=== PATIENT | male | born 1955 | race African-American/Black ===

== ENCOUNTER 2018-11-18 04:58 | Inpatient (IN) | payer MEDICAID, OTHER ==
[~2018-11-18] VITALS: Ht 180.3 cm; Wt 65.8 kg
[~2018-11-18 04:58] MED LIST: CALC667C4 PO; CLON0.2T PO; HYDR-3927 PO; LEVO250T2 PO; NIFE90TA2 PO; P20 PO
[2018-11-18 05:37] LABS: HEMATOCRIT 30.5 % (42.0-52.0); HEMOGLOBIN 10.4 g/dL (14.0-18.0); MEAN CORPUSCULAR VOLUME 84.8 fL (80.0-94.0); PLATELET 146 x1000/uL (130-400); RED CELL DISTRIBUTION WIDTH 17.4 % (11.6-14.6)
[2018-11-18 05:45] LABS: CHLORIDE 103 mEq/L (98-107)
[2018-11-18] MEDS ORDERED: ONDANSETRON HCL 4MG/2ML INJ IV STA (06:17)
[2018-11-18] MEDS ORDERED: NITROGLYCERIN OINT 1GM/INCH UDPKT TD ONE (06:45)
[2018-11-18] MEDS ORDERED: ASPIRIN 81MG TABLET PO ONE (06:45)
[2018-11-18 08:00] VITALS: BP 170/89
[2018-11-18] MEDS ORDERED: NITROGLYCERIN 0.4MG TABLET SL SL PRN (08:30)
[2018-11-18] MEDS ORDERED: ONDANSETRON HCL 4MG/2ML INJ IV PRN (08:30)
[2018-11-18] MEDS ORDERED: GUAIFENESIN 200MG/10ML SUGAR FREE UDC PO PRN (08:30)
[2018-11-18] MEDS ORDERED: IPRATROPIUM/ALBUTEROL 0.5-3(2.5)MG/3ML NEB INH PRN (08:30)
[2018-11-18] MEDS ORDERED: LORAZEPAM 0.5MG TABLET PO PRN (08:30)
[2018-11-18] MEDS ORDERED: ENOXAPARIN 40MG/0.4ML SYR SUBCUT SCH (08:30)
[2018-11-18] MEDS ORDERED: DIPHENHYDRAMINE 50MG/ML VIAL IV PRN (08:30)
[2018-11-18] MEDS ORDERED: MAGNESIUM/ALUMINUM HYDROXIDE/SIMETHICONE 30ML UDC PO PRN (08:30)
[2018-11-18 09:21] VITALS: BP 170/89
[2018-11-18] MEDS ORDERED: AMLO2.5T45 MT (09:47)
[2018-11-18] MEDS: NIFEDIPINE XL 90MG TAB PO SCH (10:13)
[2018-11-18] MEDS: METOPROLOL TARTRATE 25MG TABLET PO SCH ×2 (10:13→21:24)
[2018-11-18] MEDS: FOLIC ACID/VITAMIN B COMP W-C TABLET PO SCH (10:13)
[2018-11-18] MEDS: FAMOTIDINE 20MG TABLET PO SCH (10:14)
[2018-11-18] MEDS: ASPIRIN 325MG EC TABLET PO SCH (10:14)
[2018-11-18] MEDS: ENOXAPARIN 30MG/0.3ML SYR SUBCUT SCH (10:15)
[2018-11-18 12:00] VITALS: BP 154/83
[2018-11-18] MEDS: HYDRALAZINE HCL 50MG TABLET PO SCH ×2 (13:41→22:09)
[2018-11-18] MEDS: SEVELAMER CARBONATE 800 MG TABLET PO SCH ×2 (13:50→17:42)
[2018-11-18] MEDS ORDERED: LABE300T3 MT (14:39)
[2018-11-18] MEDS ORDERED: TAMS-11 MT (14:39)
[2018-11-18] MEDS ORDERED: WARF7.5T48 MT (14:39)
[2018-11-18] MEDS ORDERED: ATOR20TA65 MT (14:39)
[2018-11-18 16:00] VITALS: BP 125/74
[2018-11-18 16:01] LABS: CREATINE KINASE MB FRACTION 2.4 ng/mL (0.5-3.6)
[2018-11-18 20:00] VITALS: BP 157/75
[2018-11-19] VITALS: BP 135/69
[2018-11-19 01:20] LABS: CREATINE KINASE MB FRACTION 2.2 ng/mL (0.5-3.6)
[2018-11-19 04:00] VITALS: BP 126/72
[2018-11-19] MEDS: HYDRALAZINE HCL 50MG TABLET PO SCH ×3 (06:33→22:00)
[2018-11-19 08:11] LABS: BASOPHILS % 0.6 % (0.0-2.0); EOSINOPHILS % 4.3 % (0.0-5.0); HEMATOCRIT. 28.5 % (42.0-52.0); HEMOGLOBIN. 9.8 g/dL (14.0-18.0); LYMPHOCYTES % 15.7 % (20.0-50.0); MEAN CORPUSCULAR HEMOGLOBIN 29.1 pg (28.0-32.0); MEAN CORPUSCULAR VOLUME 84.6 fL (80.0-94.0); MEAN PLATELET VOLUME 9.2 fl (7.4-10.4); MONOCYTES % 12.5 % (2.0-8.0); NEUTROPHILS % 66.9 % (40.0-76.0); PLATELET 153 x1000/uL (130-400); RED BLOOD CELL COUNT 3.37 mill/uL (4.7-6.1); RED CELL DISTRIBUTION WIDTH 17.2 % (11.6-14.6)
[2018-11-19 08:47] VITALS: BP 159/84
[2018-11-19] MEDS: FAMOTIDINE 20MG TABLET PO SCH (08:47)
[2018-11-19] MEDS: METOPROLOL TARTRATE 25MG TABLET PO SCH ×2 (08:47→22:01)
[2018-11-19] MEDS: SEVELAMER CARBONATE 800 MG TABLET PO SCH ×3 (08:47→17:50)
[2018-11-19] MEDS: ASPIRIN 325MG EC TABLET PO SCH (08:47)
[2018-11-19] MEDS: FOLIC ACID/VITAMIN B COMP W-C TABLET PO SCH (08:47)
[2018-11-19] MEDS: NIFEDIPINE XL 90MG TAB PO SCH (08:47)
[2018-11-19] MEDS: ENOXAPARIN 30MG/0.3ML SYR SUBCUT SCH (08:48)
[2018-11-19 09:10] LABS: PHOSPHORUS 3.6 mg/dL (2.5-4.9)
[2018-11-19 11:17] LABS: *AMPHETAMINES SCREEN URINE NEGATIVE (NEGATIVE); *BARBITURATES SCREEN URINE NEGATIVE (NEGATIVE)
[2018-11-19 11:18] LABS: *BENZODIAZEPINES SCREEN URINE NEGATIVE (NEGATIVE); *COCAINE SCREEN URINE NEGATIVE (NEGATIVE); CANNABINOID URINE SCREEN NEGATIVE (NEGATIVE); METHADONE URINE SCREEN NEGATIVE (NEGATIVE); OPIATES URINE SCREEN NEGATIVE (NEGATIVE); PHENCYCLIDINE URINE SCREEN NEGATIVE (NEGATIVE)
[2018-11-19 12:09] VITALS: BP 163/91
[2018-11-19 16:24] VITALS: BP 160/80
[2018-11-19] MEDS: ZOLPIDEM TARTRATE 5MG TABLET PO PRN (22:01)
[2018-11-19] MEDS ORDERED: FUROSEMIDE 100MG/10ML VIAL IVP SCH (23:45)
[2018-11-19] MEDS: CLONIDINE 0.1MG TABLET PO PRN (23:54)
[2018-11-20] VITALS (68 sets, daily range): BP systolic 121–199; BP diastolic 32–133
[2018-11-20 02:57] LABS: BG BASE EXCESS -5.5 mmol/L (-2.0-2.0); BG CARBOXYHEMOGLOBIN 0.1 % (0.5-1.5); BG DEOXYHEMOGLOBIN 0.8 % (0.0-5.0); BG FRACTION INSPIRED OXYGEN 100; BG HCO3 ACT 18.9 mmol/L (22.0-26.0); BG METHEMOGLOBIN 0.3 % (0.0-1.5); BG OXYGEN SATURATION 99.2 % (92.0-98.5); BG OXYHEMOGLOBIN 98.8 % (94.0-97.0); BG PH 7.375 (7.350-7.450); BG SAMPLE SITE LEFT RADIAL; BG TOTAL HEMOGLOBIN 11.6 g/dL (12.0-18.0); BG VENT MODE MASK - NRB
[2018-11-20] MEDS: HYDRALAZINE HCL 50MG TABLET PO SCH ×3 (06:00→22:05)
[2018-11-20] MEDS ORDERED: LORAZEPAM 2MG/ML CPJ IV PRN (06:26)
[2018-11-20] MEDS: SEVELAMER CARBONATE 800 MG TABLET PO SCH ×3 (07:00→17:30)
[2018-11-20] MEDS: NITROPRUSSIDE 50 MG in SODIUM CHLORIDE 0.9% 248 ML IV PRN ×3 (08:19→22:06)
[2018-11-20] MEDS: ENOXAPARIN 30MG/0.3ML SYR SUBCUT SCH (09:00)
[2018-11-20] MEDS: FOLIC ACID/VITAMIN B COMP W-C TABLET PO SCH (09:53)
[2018-11-20] MEDS: ASPIRIN 325MG EC TABLET PO SCH (09:53)
[2018-11-20] MEDS: FAMOTIDINE 20MG TABLET PO SCH (09:53)
[2018-11-20] MEDS: METOPROLOL TARTRATE 25MG TABLET PO SCH ×2 (09:55→21:59)
[2018-11-20 10:07] LABS: HEPATITIS B SURFACE AB 859.7 mIU/mL
[2018-11-20 10:16] LABS: HEPATITIS B SURFACE ANTIGEN NEGATIVE
[2018-11-20 11:29] LABS: HEPATITIS A AB IGM NEGATIVE (NEGATIVE)
[2018-11-20] MEDS: NIFEDIPINE XL 90MG TAB PO SCH (11:39)
[2018-11-21] VITALS (75 sets, daily range): BP systolic 63–180; BP diastolic 53–103
[2018-11-21 05:47] LABS: BASOPHILS % 0.9 % (0.0-2.0); EOSINOPHILS % 2.8 % (0.0-5.0); HEMATOCRIT. 29.8 % (42.0-52.0); HEMOGLOBIN. 10.2 g/dL (14.0-18.0); LYMPHOCYTES % 9.3 % (20.0-50.0); MEAN CORPUSCULAR HEMOGLOBIN 29.2 pg (28.0-32.0); MEAN CORPUSCULAR VOLUME 85.6 fL (80.0-94.0); MEAN PLATELET VOLUME 9.4 fl (7.4-10.4); PLATELET 152 x1000/uL (130-400); RED BLOOD CELL COUNT 3.48 mill/uL (4.7-6.1)
[2018-11-21] MEDS: HYDRALAZINE HCL 50MG TABLET PO SCH ×3 (06:44→22:07)
[2018-11-21] MEDS: SEVELAMER CARBONATE 800 MG TABLET PO SCH ×3 (07:45→17:59)
[2018-11-21] MEDS: CLONIDINE 0.1MG TABLET PO PRN (07:45)
[2018-11-21] MEDS: FOLIC ACID/VITAMIN B COMP W-C TABLET PO SCH (08:29)
[2018-11-21] MEDS: NIFEDIPINE XL 90MG TAB PO SCH (08:29)
[2018-11-21] MEDS: ENOXAPARIN 30MG/0.3ML SYR SUBCUT SCH (08:30)
[2018-11-21] MEDS: METOPROLOL TARTRATE 25MG TABLET PO SCH ×2 (08:30→20:41)
[2018-11-21] MEDS: ASPIRIN 325MG EC TABLET PO SCH (08:30)
[2018-11-21] MEDS: FAMOTIDINE 20MG TABLET PO SCH (08:30)
[2018-11-21] MEDS: MINOXIDIL 2.5MG TABLET PO SCH ×2 (11:39→20:41)
[2018-11-21] MEDS ORDERED: MINOXIDIL 2.5MG TABLET PO SCH (21:00)
[2018-11-22] VITALS: BP 133/71
[2018-11-22 05:07] VITALS: BP 134/70
[2018-11-22] MEDS: HYDRALAZINE HCL 50MG TABLET PO SCH ×3 (05:08→22:00)
[2018-11-22 06:34] LABS: BASOPHILS % 1.2 % (0.0-2.0); EOSINOPHILS % 3.3 % (0.0-5.0); HEMATOCRIT. 31.3 % (42.0-52.0); HEMOGLOBIN. 10.6 g/dL (14.0-18.0); LYMPHOCYTES % 11.4 % (20.0-50.0); MEAN CORPUSCULAR HEMOGLOBIN 28.8 pg (28.0-32.0); MEAN CORPUSCULAR VOLUME 84.8 fL (80.0-94.0); MEAN PLATELET VOLUME 9.5 fl (7.4-10.4); MONOCYTES % 11.7 % (2.0-8.0); NEUTROPHILS % 72.4 % (40.0-76.0); PLATELET 150 x1000/uL (130-400); RED BLOOD CELL COUNT 3.69 mill/uL (4.7-6.1); RED CELL DISTRIBUTION WIDTH 16.8 % (11.6-14.6)
[2018-11-22 08:00] VITALS: BP 160/97
[2018-11-22] MEDS: SEVELAMER CARBONATE 800 MG TABLET PO SCH ×3 (09:13→19:03)
[2018-11-22] MEDS: ASPIRIN 325MG EC TABLET PO SCH (09:13)
[2018-11-22] MEDS: ENOXAPARIN 30MG/0.3ML SYR SUBCUT SCH (09:13)
[2018-11-22] MEDS: METOPROLOL TARTRATE 25MG TABLET PO SCH ×2 (09:13→20:25)
[2018-11-22] MEDS: MINOXIDIL 2.5MG TABLET PO SCH ×2 (09:13→20:24)
[2018-11-22] MEDS: NIFEDIPINE XL 90MG TAB PO SCH (09:13)
[2018-11-22] MEDS: FOLIC ACID/VITAMIN B COMP W-C TABLET PO SCH (09:13)
[2018-11-22] MEDS: FAMOTIDINE 20MG TABLET PO SCH (09:13)
[2018-11-22 12:00] VITALS: BP 142/77
[2018-11-22 16:00] VITALS: BP 153/78
[2018-11-22 20:00] VITALS: BP 134/79
[2018-11-23] VITALS: BP 129/80
[2018-11-23] MEDS: ZOLPIDEM TARTRATE 5MG TABLET PO PRN (02:41)
[2018-11-23 04:00] VITALS: BP 159/88
[2018-11-23] MEDS: HYDRALAZINE HCL 50MG TABLET PO SCH ×3 (05:22→21:53)
[2018-11-23 08:00] VITALS: BP 144/88
[2018-11-23] MEDS: FOLIC ACID/VITAMIN B COMP W-C TABLET PO SCH (08:33)
[2018-11-23] MEDS: FAMOTIDINE 20MG TABLET PO SCH (08:34)
[2018-11-23] MEDS: METOPROLOL TARTRATE 25MG TABLET PO SCH ×2 (08:34→21:53)
[2018-11-23] MEDS: ASPIRIN 325MG EC TABLET PO SCH (08:35)
[2018-11-23] MEDS: MINOXIDIL 2.5MG TABLET PO SCH ×2 (08:35→21:53)
[2018-11-23] MEDS: NIFEDIPINE XL 90MG TAB PO SCH (08:35)
[2018-11-23] MEDS: ENOXAPARIN 30MG/0.3ML SYR SUBCUT SCH (08:36)
[2018-11-23] MEDS: SEVELAMER CARBONATE 800 MG TABLET PO SCH ×3 (08:51→17:40)
[2018-11-23 12:00] VITALS: BP 145/84
[2018-11-23 16:00] VITALS: BP 145/84
[2018-11-23 20:00] VITALS: BP 133/77
[2018-11-24] VITALS: BP 152/99
[2018-11-24 04:00] VITALS: BP 165/85
[2018-11-24] MEDS: HYDRALAZINE HCL 50MG TABLET PO SCH ×3 (05:56→21:15)
[2018-11-24 06:59] LABS: HEMATOCRIT. 29.4 % (42.0-52.0); HEMOGLOBIN. 9.9 g/dL (14.0-18.0); MEAN CORPUSCULAR HEMOGLOBIN 28.4 pg (28.0-32.0); MEAN CORPUSCULAR VOLUME 84.5 fL (80.0-94.0); MEAN PLATELET VOLUME 9.1 fl (7.4-10.4); PLATELET 157 x1000/uL (130-400); RED BLOOD CELL COUNT 3.48 mill/uL (4.7-6.1); RED CELL DISTRIBUTION WIDTH 16.5 % (11.6-14.6)
[2018-11-24 08:00] VITALS: BP 189/101
[2018-11-24] MEDS: FOLIC ACID/VITAMIN B COMP W-C TABLET PO SCH (09:18)
[2018-11-24] MEDS: ASPIRIN 325MG EC TABLET PO SCH (09:18)
[2018-11-24] MEDS: FAMOTIDINE 20MG TABLET PO SCH (09:19)
[2018-11-24] MEDS: METOPROLOL TARTRATE 25MG TABLET PO SCH ×2 (09:19→21:15)
[2018-11-24] MEDS: NIFEDIPINE XL 90MG TAB PO SCH (09:19)
[2018-11-24] MEDS: ENOXAPARIN 30MG/0.3ML SYR SUBCUT SCH (09:19)
[2018-11-24] MEDS: SEVELAMER CARBONATE 800 MG TABLET PO SCH ×3 (09:19→17:34)
[2018-11-24] MEDS: MINOXIDIL 2.5MG TABLET PO SCH ×2 (09:20→21:15)
[2018-11-24 12:00] VITALS: BP 163/89
[2018-11-24 16:00] VITALS: BP 131/78
[2018-11-24 16:49] LABS: PLATELET ESTIMATE NORMAL
[2018-11-24 20:00] VITALS: BP 158/90
[2018-11-24] MEDS ORDERED: MULT1TAB63 MT (20:26)
[2018-11-24] MEDS ORDERED: CHOL100044 MT (20:26)
[2018-11-25] VITALS: BP 141/74
[2018-11-25 04:00] VITALS: BP 162/95
[2018-11-25] MEDS: HYDRALAZINE HCL 50MG TABLET PO SCH ×3 (06:09→22:00)
[2018-11-25 08:00] VITALS: BP 122/79
[2018-11-25] MEDS: METOPROLOL TARTRATE 25MG TABLET PO SCH ×2 (09:01→20:55)
[2018-11-25] MEDS: ASPIRIN 325MG EC TABLET PO SCH (09:01)
[2018-11-25] MEDS: FOLIC ACID/VITAMIN B COMP W-C TABLET PO SCH (09:01)
[2018-11-25] MEDS: FAMOTIDINE 20MG TABLET PO SCH (09:01)
[2018-11-25] MEDS: SEVELAMER CARBONATE 800 MG TABLET PO SCH ×3 (09:01→17:40)
[2018-11-25] MEDS: NIFEDIPINE XL 90MG TAB PO SCH (09:01)
[2018-11-25] MEDS: MINOXIDIL 2.5MG TABLET PO SCH ×2 (09:02→20:54)
[2018-11-25] MEDS: ENOXAPARIN 30MG/0.3ML SYR SUBCUT SCH (09:02)
[2018-11-25 12:00] VITALS: BP 139/88
[2018-11-25 16:00] VITALS: BP 122/72
[2018-11-25 20:00] VITALS: BP 120/63
[2018-11-26] VITALS: BP 133/70
[2018-11-26 04:00] VITALS: BP 136/78
[2018-11-26] MEDS: HYDRALAZINE HCL 50MG TABLET PO SCH ×3 (05:30→21:29)
[2018-11-26 08:00] VITALS: BP 130/73
[2018-11-26] MEDS: FOLIC ACID/VITAMIN B COMP W-C TABLET PO SCH (08:39)
[2018-11-26] MEDS: FAMOTIDINE 20MG TABLET PO SCH (08:40)
[2018-11-26] MEDS: ASPIRIN 325MG EC TABLET PO SCH (08:40)
[2018-11-26] MEDS: SEVELAMER CARBONATE 800 MG TABLET PO SCH ×3 (08:41→17:04)
[2018-11-26] MEDS: METOPROLOL TARTRATE 25MG TABLET PO SCH ×2 (08:41→21:29)
[2018-11-26] MEDS: MINOXIDIL 2.5MG TABLET PO SCH ×2 (08:41→21:29)
[2018-11-26] MEDS: NIFEDIPINE XL 90MG TAB PO SCH (08:41)
[2018-11-26] MEDS: ENOXAPARIN 30MG/0.3ML SYR SUBCUT SCH (08:42)
[2018-11-26 12:00] VITALS: BP 124/68
[2018-11-26 16:00] VITALS: BP 142/76
[2018-11-26 20:00] VITALS: BP 160/89
[2018-11-27] VITALS: BP 158/85
[2018-11-27 04:00] VITALS: BP 124/60
[2018-11-27] MEDS: HYDRALAZINE HCL 50MG TABLET PO SCH ×3 (06:36→21:55)
[2018-11-27 08:00] VITALS: BP 120/80
[2018-11-27 08:15] LABS: HEMATOCRIT. 30.9 % (42.0-52.0); HEMOGLOBIN. 10.5 g/dL (14.0-18.0); MEAN CORPUSCULAR HEMOGLOBIN 28.5 pg (28.0-32.0); MEAN PLATELET VOLUME 9.4 fl (7.4-10.4); PLATELET 183 x1000/uL (130-400); RED BLOOD CELL COUNT 3.68 mill/uL (4.7-6.1); RED CELL DISTRIBUTION WIDTH 16.3 % (11.6-14.6)
[2018-11-27] MEDS: SEVELAMER CARBONATE 800 MG TABLET PO SCH ×3 (08:41→17:54)
[2018-11-27] MEDS: ASPIRIN 325MG EC TABLET PO SCH (08:41)
[2018-11-27] MEDS: METOPROLOL TARTRATE 25MG TABLET PO SCH ×2 (08:42→21:56)
[2018-11-27] MEDS: NIFEDIPINE XL 90MG TAB PO SCH (08:42)
[2018-11-27] MEDS: MINOXIDIL 2.5MG TABLET PO SCH ×2 (08:42→21:55)
[2018-11-27] MEDS: FOLIC ACID/VITAMIN B COMP W-C TABLET PO SCH (08:42)
[2018-11-27] MEDS: FAMOTIDINE 20MG TABLET PO SCH (08:43)
[2018-11-27] MEDS: ENOXAPARIN 30MG/0.3ML SYR SUBCUT SCH (08:51)
[2018-11-27 11:15] LABS: CHLORIDE 104 mEq/L (98-107)
[2018-11-27 12:00] VITALS: BP 116/68
[2018-11-27 12:43] LABS: PLATELET ESTIMATE NORMAL
[2018-11-27 16:00] VITALS: BP 114/78
[2018-11-27 20:00] VITALS: BP 141/84
[2018-11-28] VITALS: BP 118/67
[2018-11-28 04:00] VITALS: BP 135/67
[2018-11-28] MEDS: HYDRALAZINE HCL 50MG TABLET PO SCH ×2 (06:18→15:48)
[2018-11-28 07:49] LABS: HEMATOCRIT. 28.5 % (42.0-52.0); HEMOGLOBIN. 9.8 g/dL (14.0-18.0); MEAN CORPUSCULAR HEMOGLOBIN 28.8 pg (28.0-32.0); MEAN CORPUSCULAR VOLUME 83.7 fL (80.0-94.0); MEAN PLATELET VOLUME 9.2 fl (7.4-10.4); PLATELET 189 x1000/uL (130-400); RED BLOOD CELL COUNT 3.41 mill/uL (4.7-6.1); RED CELL DISTRIBUTION WIDTH 15.7 % (11.6-14.6)
[2018-11-28 08:00] VITALS: BP 125/65
[2018-11-28 09:01] LABS: PLATELET ESTIMATE NORMAL
[2018-11-28] MEDS: ENOXAPARIN 30MG/0.3ML SYR SUBCUT SCH (09:08)
[2018-11-28] MEDS: ASPIRIN 325MG EC TABLET PO SCH (09:08)
[2018-11-28] MEDS: FOLIC ACID/VITAMIN B COMP W-C TABLET PO SCH (09:08)
[2018-11-28] MEDS: FAMOTIDINE 20MG TABLET PO SCH (09:08)
[2018-11-28] MEDS: METOPROLOL TARTRATE 25MG TABLET PO SCH ×2 (09:08→21:14)
[2018-11-28] MEDS: SEVELAMER CARBONATE 800 MG TABLET PO SCH ×3 (09:08→17:29)
[2018-11-28] MEDS: MINOXIDIL 2.5MG TABLET PO SCH ×2 (09:08→21:14)
[2018-11-28] MEDS: NIFEDIPINE XL 90MG TAB PO SCH (09:15)
[2018-11-28 12:00] VITALS: BP 147/83
[2018-11-28 16:00] VITALS: BP 121/69
[2018-11-28 20:00] VITALS: BP 114/64
[2018-11-29] VITALS (7 sets, daily range): BP systolic 106–149; BP diastolic 65–87
[2018-11-29] MEDS: HYDRALAZINE HCL 50MG TABLET PO SCH ×4 (00:35→21:04)
[2018-11-29 09:45] LABS: BASOPHILS % 0.6 % (0.0-2.0); EOSINOPHILS % 2.7 % (0.0-5.0); HEMATOCRIT. 31.5 % (42.0-52.0); HEMOGLOBIN. 10.8 g/dL (14.0-18.0); LYMPHOCYTES % 11.7 % (20.0-50.0); MEAN CORPUSCULAR VOLUME 84.3 fL (80.0-94.0); MONOCYTES % 8.9 % (2.0-8.0); NEUTROPHILS % 76.1 % (40.0-76.0); PLATELET 229 x1000/uL (130-400); RED BLOOD CELL COUNT 3.74 mill/uL (4.7-6.1)
[2018-11-29] MEDS: METOPROLOL TARTRATE 25MG TABLET PO SCH ×2 (10:43→21:05)
[2018-11-29] MEDS: FOLIC ACID/VITAMIN B COMP W-C TABLET PO SCH (10:43)
[2018-11-29] MEDS: MINOXIDIL 2.5MG TABLET PO SCH ×2 (10:43→21:04)
[2018-11-29] MEDS: ASPIRIN 325MG EC TABLET PO SCH (10:43)
[2018-11-29] MEDS: NIFEDIPINE XL 90MG TAB PO SCH (10:43)
[2018-11-29] MEDS: SEVELAMER CARBONATE 800 MG TABLET PO SCH ×3 (10:43→18:10)
[2018-11-29] MEDS: FAMOTIDINE 20MG TABLET PO SCH (10:44)
[2018-11-29] MEDS: ENOXAPARIN 30MG/0.3ML SYR SUBCUT SCH (10:44)
[2018-11-30] VITALS: BP 113/68
[2018-11-30 04:00] VITALS: BP 113/58
[2018-11-30] MEDS: HYDRALAZINE HCL 50MG TABLET PO SCH ×3 (06:21→14:00)
[2018-11-30 08:00] VITALS: BP 128/68
[2018-11-30] MEDS: FAMOTIDINE 20MG TABLET PO SCH (09:22)
[2018-11-30] MEDS: METOPROLOL TARTRATE 25MG TABLET PO SCH ×2 (09:22→23:32)
[2018-11-30] MEDS: MINOXIDIL 2.5MG TABLET PO SCH ×2 (09:23→23:32)
[2018-11-30] MEDS: SEVELAMER CARBONATE 800 MG TABLET PO SCH ×3 (09:23→17:43)
[2018-11-30] MEDS: FOLIC ACID/VITAMIN B COMP W-C TABLET PO SCH (09:23)
[2018-11-30] MEDS: NIFEDIPINE XL 90MG TAB PO SCH (09:24)
[2018-11-30] MEDS: ASPIRIN 325MG EC TABLET PO SCH (09:24)
[2018-11-30] MEDS: ENOXAPARIN 30MG/0.3ML SYR SUBCUT SCH (09:27)
[2018-11-30 09:33] LABS: BASOPHILS % 0.8 % (0.0-2.0); HEMATOCRIT. 29.4 % (42.0-52.0); HEMOGLOBIN. 10.2 g/dL (14.0-18.0); LYMPHOCYTES % 25.5 % (20.0-50.0); MEAN CORPUSCULAR HEMOGLOBIN 29.1 pg (28.0-32.0); MEAN CORPUSCULAR VOLUME 83.5 fL (80.0-94.0); MEAN PLATELET VOLUME 9.2 fl (7.4-10.4); MONOCYTES % 13.4 % (2.0-8.0); NEUTROPHILS % 55.3 % (40.0-76.0); PLATELET 234 x1000/uL (130-400); RED BLOOD CELL COUNT 3.53 mill/uL (4.7-6.1); RED CELL DISTRIBUTION WIDTH 15.6 % (11.6-14.6)
[2018-11-30 12:00] VITALS: BP 101/56
[2018-11-30 16:00] VITALS: BP 116/66
[2018-11-30 20:00] VITALS: BP 117/69
[2018-12-01 04:00] VITALS: BP 113/63
[2018-12-01 07:03] LABS: BASOPHILS % 1.1 % (0.0-2.0); EOSINOPHILS % 4.8 % (0.0-5.0); HEMATOCRIT. 26.9 % (42.0-52.0); HEMOGLOBIN. 9.5 g/dL (14.0-18.0); LYMPHOCYTES % 21.8 % (20.0-50.0); MEAN CORPUSCULAR HEMOGLOBIN 29.7 pg (28.0-32.0); MEAN CORPUSCULAR VOLUME 84.2 fL (80.0-94.0); MEAN PLATELET VOLUME 8.9 fl (7.4-10.4); MONOCYTES % 14.3 % (2.0-8.0); PLATELET 218 x1000/uL (130-400); RED CELL DISTRIBUTION WIDTH 15.7 % (11.6-14.6)
[2018-12-01 08:00] VITALS: BP 121/73
[2018-12-01] MEDS: SEVELAMER CARBONATE 800 MG TABLET PO SCH ×3 (09:31→18:05)
[2018-12-01] MEDS: FOLIC ACID/VITAMIN B COMP W-C TABLET PO SCH (09:31)
[2018-12-01] MEDS: FAMOTIDINE 20MG TABLET PO SCH (09:31)
[2018-12-01] MEDS: MINOXIDIL 2.5MG TABLET PO SCH ×2 (09:34→21:22)
[2018-12-01] MEDS: NIFEDIPINE XL 90MG TAB PO SCH (09:36)
[2018-12-01] MEDS: ASPIRIN 325MG EC TABLET PO SCH (09:36)
[2018-12-01] MEDS: METOPROLOL TARTRATE 25MG TABLET PO SCH ×2 (09:37→21:21)
[2018-12-01] MEDS: ENOXAPARIN 30MG/0.3ML SYR SUBCUT SCH (09:37)
[2018-12-01 12:00] VITALS: BP 127/78
[2018-12-01 16:00] VITALS: BP 129/80
[2018-12-01 20:00] VITALS: BP 142/78
[2018-12-01] MEDS: HYDRALAZINE HCL 50MG TABLET PO SCH ×2 (23:38→23:39)
[2018-12-02] VITALS: BP 14/75
[2018-12-02] MEDS: HYDRALAZINE HCL 50MG TABLET PO SCH ×3 (05:27→21:41)
[2018-12-02 07:54] LABS: HEMATOCRIT. 28.9 % (42.0-52.0); HEMOGLOBIN. 10.1 g/dL (14.0-18.0); MEAN CORPUSCULAR VOLUME 85.6 fL (80.0-94.0); MEAN PLATELET VOLUME 9.8 fl (7.4-10.4); PLATELET 223 x1000/uL (130-400); RED BLOOD CELL COUNT 3.37 mill/uL (4.7-6.1); RED CELL DISTRIBUTION WIDTH 15.7 % (11.6-14.6)
[2018-12-02 08:00] VITALS: BP 125/74
[2018-12-02] MEDS: FAMOTIDINE 20MG TABLET PO SCH (08:40)
[2018-12-02] MEDS: ENOXAPARIN 30MG/0.3ML SYR SUBCUT SCH (08:40)
[2018-12-02] MEDS: FOLIC ACID/VITAMIN B COMP W-C TABLET PO SCH (08:41)
[2018-12-02] MEDS: NIFEDIPINE XL 90MG TAB PO SCH (08:41)
[2018-12-02] MEDS: MINOXIDIL 2.5MG TABLET PO SCH ×2 (08:41→21:42)
[2018-12-02] MEDS: ASPIRIN 325MG EC TABLET PO SCH (08:41)
[2018-12-02] MEDS: METOPROLOL TARTRATE 25MG TABLET PO SCH ×2 (08:41→21:42)
[2018-12-02] MEDS: SEVELAMER CARBONATE 800 MG TABLET PO SCH ×3 (08:45→17:09)
[2018-12-02 12:00] VITALS: BP 127/76
[2018-12-02 14:16] LABS: PLATELET ESTIMATE NORMAL
[2018-12-02 17:18] VITALS: BP 124/81
[2018-12-02 20:00] VITALS: BP 133/78
[2018-12-03] VITALS: BP 131/79
[2018-12-03 04:00] VITALS: BP 137/70
[2018-12-03] MEDS: HYDRALAZINE HCL 50MG TABLET PO SCH ×3 (06:09→22:15)
[2018-12-03 08:20] VITALS: BP 122/70
[2018-12-03] MEDS: MINOXIDIL 2.5MG TABLET PO SCH ×2 (08:54→20:32)
[2018-12-03] MEDS: NIFEDIPINE XL 90MG TAB PO SCH (08:54)
[2018-12-03] MEDS: FAMOTIDINE 20MG TABLET PO SCH (08:54)
[2018-12-03] MEDS: ASPIRIN 325MG EC TABLET PO SCH (08:54)
[2018-12-03] MEDS: SEVELAMER CARBONATE 800 MG TABLET PO SCH ×3 (08:54→18:03)
[2018-12-03] MEDS: METOPROLOL TARTRATE 25MG TABLET PO SCH ×2 (08:54→20:32)
[2018-12-03] MEDS: FOLIC ACID/VITAMIN B COMP W-C TABLET PO SCH (08:54)
[2018-12-03] MEDS: ENOXAPARIN 30MG/0.3ML SYR SUBCUT SCH (08:55)
[2018-12-03 11:46] LABS: BASOPHILS % 1.5 % (0.0-2.0); EOSINOPHILS % 6.5 % (0.0-5.0); HEMATOCRIT. 26.6 % (42.0-52.0); HEMOGLOBIN. 9.3 g/dL (14.0-18.0); LYMPHOCYTES % 21.7 % (20.0-50.0); MEAN CORPUSCULAR HEMOGLOBIN 29.4 pg (28.0-32.0); MEAN CORPUSCULAR VOLUME 83.9 fL (80.0-94.0); MEAN PLATELET VOLUME 8.8 fl (7.4-10.4); MONOCYTES % 10.9 % (2.0-8.0); NEUTROPHILS % 59.4 % (40.0-76.0); PLATELET 230 x1000/uL (130-400); RED BLOOD CELL COUNT 3.17 mill/uL (4.7-6.1); RED CELL DISTRIBUTION WIDTH 14.9 % (11.6-14.6)
[2018-12-03 12:28] VITALS: BP 115/63
[2018-12-03 16:53] VITALS: BP 125/70
[2018-12-03 20:27] VITALS: BP 129/74
[2018-12-04 00:38] VITALS: BP 134/74
[2018-12-04 04:00] VITALS: BP 128/76
[2018-12-04] MEDS: HYDRALAZINE HCL 50MG TABLET PO SCH ×3 (05:18→21:57)
[2018-12-04 08:00] VITALS: BP 130/76
[2018-12-04] MEDS: NIFEDIPINE XL 90MG TAB PO SCH (08:54)
[2018-12-04] MEDS: ASPIRIN 325MG EC TABLET PO SCH (08:54)
[2018-12-04] MEDS: FAMOTIDINE 20MG TABLET PO SCH (08:54)
[2018-12-04] MEDS: MINOXIDIL 2.5MG TABLET PO SCH ×2 (08:54→20:56)
[2018-12-04] MEDS: FOLIC ACID/VITAMIN B COMP W-C TABLET PO SCH (08:54)
[2018-12-04] MEDS: METOPROLOL TARTRATE 25MG TABLET PO SCH ×2 (08:55→20:56)
[2018-12-04] MEDS: ENOXAPARIN 30MG/0.3ML SYR SUBCUT SCH (08:55)
[2018-12-04] MEDS: SEVELAMER CARBONATE 800 MG TABLET PO SCH ×3 (08:59→18:42)
[2018-12-04 20:13] VITALS: BP 144/90
[2018-12-05 00:28] VITALS: BP 126/72
[2018-12-05 04:42] VITALS: BP 137/80
[2018-12-05] MEDS: HYDRALAZINE HCL 50MG TABLET PO SCH ×3 (05:16→20:52)
[2018-12-05 08:00] VITALS: BP 120/64
[2018-12-05] MEDS: FAMOTIDINE 20MG TABLET PO SCH (08:29)
[2018-12-05] MEDS: SEVELAMER CARBONATE 800 MG TABLET PO SCH ×3 (08:29→18:03)
[2018-12-05] MEDS: ASPIRIN 325MG EC TABLET PO SCH (08:29)
[2018-12-05] MEDS: FOLIC ACID/VITAMIN B COMP W-C TABLET PO SCH (08:29)
[2018-12-05] MEDS: ENOXAPARIN 30MG/0.3ML SYR SUBCUT SCH (08:30)
[2018-12-05 08:37] LABS: BASOPHILS % 1.8 % (0.0-2.0); EOSINOPHILS % 7.4 % (0.0-5.0); HEMOGLOBIN. 9.4 g/dL (14.0-18.0); MEAN CORPUSCULAR HEMOGLOBIN 29.3 pg (28.0-32.0); MEAN CORPUSCULAR VOLUME 84.7 fL (80.0-94.0); MONOCYTES % 10.6 % (2.0-8.0); NEUTROPHILS % 58.2 % (40.0-76.0); PLATELET 228 x1000/uL (130-400); RED BLOOD CELL COUNT 3.19 mill/uL (4.7-6.1); RED CELL DISTRIBUTION WIDTH 14.7 % (11.6-14.6)
[2018-12-05] MEDS: NIFEDIPINE XL 90MG TAB PO SCH (09:00)
[2018-12-05] MEDS: MINOXIDIL 2.5MG TABLET PO SCH ×2 (09:00→20:52)
[2018-12-05] MEDS: METOPROLOL TARTRATE 25MG TABLET PO SCH ×2 (09:00→20:52)
[2018-12-05 12:00] VITALS: BP 112/58
[2018-12-05 16:00] VITALS: BP 113/63
[2018-12-05 20:25] VITALS: BP 130/74
[2018-12-06] VITALS: BP 127/69
[2018-12-06 04:12] VITALS: BP 133/80
[2018-12-06] MEDS: HYDRALAZINE HCL 50MG TABLET PO SCH ×3 (06:26→22:12)
[2018-12-06 08:00] VITALS: BP 126/73
[2018-12-06] MEDS: SEVELAMER CARBONATE 800 MG TABLET PO SCH ×3 (09:42→19:18)
[2018-12-06] MEDS: METOPROLOL TARTRATE 25MG TABLET PO SCH ×2 (09:43→22:13)
[2018-12-06] MEDS: FOLIC ACID/VITAMIN B COMP W-C TABLET PO SCH (09:43)
[2018-12-06] MEDS: NIFEDIPINE XL 90MG TAB PO SCH (09:43)
[2018-12-06] MEDS: MINOXIDIL 2.5MG TABLET PO SCH ×2 (09:43→22:12)
[2018-12-06] MEDS: DOCUSATE SODIUM 100MG CAPSULE PO PRN (09:44)
[2018-12-06] MEDS: ASPIRIN 325MG EC TABLET PO SCH (09:44)
[2018-12-06] MEDS: ENOXAPARIN 30MG/0.3ML SYR SUBCUT SCH (09:45)
[2018-12-06] MEDS: FAMOTIDINE 20MG TABLET PO SCH (09:56)
[2018-12-06 13:21] LABS: BASOPHILS % 1.1 % (0.0-2.0); EOSINOPHILS % 5.8 % (0.0-5.0); HEMATOCRIT. 26.2 % (42.0-52.0); MEAN CORPUSCULAR HEMOGLOBIN 28.8 pg (28.0-32.0); MEAN CORPUSCULAR VOLUME 84.2 fL (80.0-94.0); MEAN PLATELET VOLUME 9.1 fl (7.4-10.4); MONOCYTES % 13.3 % (2.0-8.0); NEUTROPHILS % 59.8 % (40.0-76.0); PLATELET 229 x1000/uL (130-400); RED BLOOD CELL COUNT 3.11 mill/uL (4.7-6.1); RED CELL DISTRIBUTION WIDTH 15.1 % (11.6-14.6)
[2018-12-06 16:00] VITALS: BP 104/62
[2018-12-06 20:00] VITALS: BP 136/73
[2018-12-07 04:00] VITALS: BP 128/71
[2018-12-07 06:16] LABS: BASOPHILS % 1.8 % (0.0-2.0); EOSINOPHILS % 7.1 % (0.0-5.0); HEMATOCRIT. 24.1 % (42.0-52.0); HEMOGLOBIN. 8.5 g/dL (14.0-18.0); LYMPHOCYTES % 18.7 % (20.0-50.0); MEAN CORPUSCULAR HEMOGLOBIN 29.4 pg (28.0-32.0); MEAN CORPUSCULAR VOLUME 83.8 fL (80.0-94.0); MEAN PLATELET VOLUME 9.1 fl (7.4-10.4); MONOCYTES % 14.5 % (2.0-8.0); NEUTROPHILS % 57.9 % (40.0-76.0); PLATELET 205 x1000/uL (130-400); RED BLOOD CELL COUNT 2.88 mill/uL (4.7-6.1)
[2018-12-07] MEDS: HYDRALAZINE HCL 50MG TABLET PO SCH ×3 (07:03→21:27)
[2018-12-07 08:00] VITALS: BP 140/74
[2018-12-07] MEDS: ENOXAPARIN 30MG/0.3ML SYR SUBCUT SCH ×2 (09:00→10:07)
[2018-12-07] MEDS: FOLIC ACID/VITAMIN B COMP W-C TABLET PO SCH (10:05)
[2018-12-07] MEDS: ASPIRIN 325MG EC TABLET PO SCH (10:06)
[2018-12-07] MEDS: METOPROLOL TARTRATE 25MG TABLET PO SCH ×2 (10:06→21:22)
[2018-12-07] MEDS: NIFEDIPINE XL 90MG TAB PO SCH (10:06)
[2018-12-07] MEDS: MINOXIDIL 2.5MG TABLET PO SCH ×2 (10:06→21:25)
[2018-12-07] MEDS: FAMOTIDINE 20MG TABLET PO SCH (10:11)
[2018-12-07] MEDS: SEVELAMER CARBONATE 800 MG TABLET PO SCH ×3 (10:11→16:57)
[2018-12-07] MEDS: ACETAMINOPHEN 325MG TABLET PO PRN (11:11)
[2018-12-07 12:00] VITALS: BP 143/77
[2018-12-07 16:00] VITALS: BP 133/77
[2018-12-07 20:19] VITALS: BP 133/69
[2018-12-08 00:30] VITALS: BP 119/72
[2018-12-08 04:00] VITALS: BP 109/61
[2018-12-08] MEDS: HYDRALAZINE HCL 50MG TABLET PO SCH ×3 (05:47→21:48)
[2018-12-08 07:31] LABS: BASOPHILS % 1.1 % (0.0-2.0); EOSINOPHILS % 6.3 % (0.0-5.0); HEMATOCRIT. 24.8 % (42.0-52.0); HEMOGLOBIN. 8.6 g/dL (14.0-18.0); LYMPHOCYTES % 17.1 % (20.0-50.0); MEAN CORPUSCULAR HEMOGLOBIN 29.3 pg (28.0-32.0); MEAN CORPUSCULAR VOLUME 83.8 fL (80.0-94.0); MEAN PLATELET VOLUME 8.9 fl (7.4-10.4); MONOCYTES % 13.5 % (2.0-8.0); PLATELET 195 x1000/uL (130-400); RED BLOOD CELL COUNT 2.95 mill/uL (4.7-6.1)
[2018-12-08 08:00] VITALS: BP 137/72
[2018-12-08] MEDS: SEVELAMER CARBONATE 800 MG TABLET PO SCH ×3 (09:40→19:06)
[2018-12-08] MEDS: METOPROLOL TARTRATE 25MG TABLET PO SCH ×2 (09:41→21:47)
[2018-12-08] MEDS: MINOXIDIL 2.5MG TABLET PO SCH ×2 (09:42→21:47)
[2018-12-08] MEDS: FOLIC ACID/VITAMIN B COMP W-C TABLET PO SCH (09:42)
[2018-12-08] MEDS: DOCUSATE SODIUM 100MG CAPSULE PO PRN (09:42)
[2018-12-08] MEDS: ENOXAPARIN 30MG/0.3ML SYR SUBCUT SCH (09:43)
[2018-12-08] MEDS: ASPIRIN 325MG EC TABLET PO SCH (09:44)
[2018-12-08 12:00] VITALS: BP 139/77
[2018-12-08] MEDS: NIFEDIPINE XL 90MG TAB PO SCH (13:58)
[2018-12-08] MEDS: FAMOTIDINE 20MG TABLET PO SCH (13:58)
[2018-12-08 16:00] VITALS: BP 131/77
[2018-12-08 20:00] VITALS: BP 167/94
[2018-12-08] MEDS: ACETAMINOPHEN 325MG TABLET PO PRN (21:49)
[2018-12-09] VITALS: BP 115/63
[2018-12-09 04:00] VITALS: BP 121/62
[2018-12-09] MEDS: HYDRALAZINE HCL 50MG TABLET PO SCH ×3 (06:08→22:00)
[2018-12-09 07:26] LABS: BASOPHILS % 1.4 % (0.0-2.0); EOSINOPHILS % 7.5 % (0.0-5.0); HEMATOCRIT. 24.8 % (42.0-52.0); HEMOGLOBIN. 8.4 g/dL (14.0-18.0); LYMPHOCYTES % 19.5 % (20.0-50.0); MEAN CORPUSCULAR HEMOGLOBIN 28.7 pg (28.0-32.0); MEAN CORPUSCULAR VOLUME 84.5 fL (80.0-94.0); MONOCYTES % 13.1 % (2.0-8.0); NEUTROPHILS % 58.5 % (40.0-76.0); PLATELET 179 x1000/uL (130-400); RED BLOOD CELL COUNT 2.93 mill/uL (4.7-6.1)
[2018-12-09 08:00] VITALS: BP 128/82
[2018-12-09] MEDS: SEVELAMER CARBONATE 800 MG TABLET PO SCH ×3 (12:50→18:44)
[2018-12-09] MEDS: MINOXIDIL 2.5MG TABLET PO SCH ×2 (14:20→21:00)
[2018-12-09] MEDS: DOCUSATE SODIUM 100MG CAPSULE PO PRN ×2 (14:20→18:45)
[2018-12-09] MEDS: METOPROLOL TARTRATE 25MG TABLET PO SCH ×2 (14:20→21:00)
[2018-12-09] MEDS: NIFEDIPINE XL 90MG TAB PO SCH (14:21)
[2018-12-09] MEDS: FOLIC ACID/VITAMIN B COMP W-C TABLET PO SCH (14:21)
[2018-12-09] MEDS: ENOXAPARIN 30MG/0.3ML SYR SUBCUT SCH (14:22)
[2018-12-09] MEDS: ASPIRIN 325MG EC TABLET PO SCH (14:22)
[2018-12-09 16:00] VITALS: BP 122/78
[2018-12-09] MEDS: FAMOTIDINE 20MG TABLET PO SCH (18:44)
[2018-12-09 20:00] VITALS: BP 111/62
[2018-12-10] VITALS: BP 113/64
[2018-12-10 04:00] VITALS: BP 133/73
[2018-12-10] MEDS: HYDRALAZINE HCL 50MG TABLET PO SCH ×3 (06:14→21:17)
[2018-12-10 07:24] LABS: BASOPHILS % 1.3 % (0.0-2.0); EOSINOPHILS % 7.3 % (0.0-5.0); HEMATOCRIT. 25.7 % (42.0-52.0); HEMOGLOBIN. 8.8 g/dL (14.0-18.0); LYMPHOCYTES % 22.4 % (20.0-50.0); MEAN CORPUSCULAR HEMOGLOBIN 28.8 pg (28.0-32.0); MEAN CORPUSCULAR VOLUME 84.3 fL (80.0-94.0); MEAN PLATELET VOLUME 9.1 fl (7.4-10.4); MONOCYTES % 13.8 % (2.0-8.0); NEUTROPHILS % 55.2 % (40.0-76.0); PLATELET 187 x1000/uL (130-400); RED BLOOD CELL COUNT 3.05 mill/uL (4.7-6.1); RED CELL DISTRIBUTION WIDTH 14.4 % (11.6-14.6)
[2018-12-10 08:00] VITALS: BP 129/74
[2018-12-10] MEDS: SEVELAMER CARBONATE 800 MG TABLET PO SCH ×3 (08:07→18:00)
[2018-12-10] MEDS: FOLIC ACID/VITAMIN B COMP W-C TABLET PO SCH (08:07)
[2018-12-10] MEDS: NIFEDIPINE XL 90MG TAB PO SCH (08:07)
[2018-12-10] MEDS: ENOXAPARIN 30MG/0.3ML SYR SUBCUT SCH (08:08)
[2018-12-10] MEDS: MINOXIDIL 2.5MG TABLET PO SCH ×2 (08:08→21:17)
[2018-12-10] MEDS: METOPROLOL TARTRATE 25MG TABLET PO SCH ×2 (08:08→21:17)
[2018-12-10] MEDS: FAMOTIDINE 20MG TABLET PO SCH (08:08)
[2018-12-10] MEDS: ASPIRIN 325MG EC TABLET PO SCH (08:16)
[2018-12-10 12:00] VITALS: BP 149/70
[2018-12-10 16:00] VITALS: BP 118/73
[2018-12-10 20:00] VITALS: BP 135/71
[2018-12-11] VITALS (7 sets, daily range): BP systolic 119–150; BP diastolic 64–88
[2018-12-11] MEDS: HYDRALAZINE HCL 50MG TABLET PO SCH ×3 (05:42→22:36)
[2018-12-11 06:09] LABS: HEMATOCRIT. 24.6 % (42.0-52.0); HEMOGLOBIN. 8.5 g/dL (14.0-18.0); MEAN CORPUSCULAR HEMOGLOBIN 29.2 pg (28.0-32.0); MEAN CORPUSCULAR VOLUME 84.1 fL (80.0-94.0); MEAN PLATELET VOLUME 9.5 fl (7.4-10.4); PLATELET 176 x1000/uL (130-400); RED BLOOD CELL COUNT 2.92 mill/uL (4.7-6.1); RED CELL DISTRIBUTION WIDTH 14.6 % (11.6-14.6)
[2018-12-11] MEDS: ASPIRIN 325MG EC TABLET PO SCH (08:04)
[2018-12-11] MEDS: METOPROLOL TARTRATE 25MG TABLET PO SCH ×2 (08:04→20:29)
[2018-12-11] MEDS: FOLIC ACID/VITAMIN B COMP W-C TABLET PO SCH (08:04)
[2018-12-11] MEDS: ENOXAPARIN 30MG/0.3ML SYR SUBCUT SCH (08:05)
[2018-12-11] MEDS: SEVELAMER CARBONATE 800 MG TABLET PO SCH ×3 (08:07→18:30)
[2018-12-11] MEDS: FAMOTIDINE 20MG TABLET PO SCH (08:07)
[2018-12-11] MEDS: MINOXIDIL 2.5MG TABLET PO SCH ×2 (08:16→20:29)
[2018-12-11] MEDS: NIFEDIPINE XL 90MG TAB PO SCH (09:02)
[2018-12-11 13:04] LABS: PLATELET ESTIMATE NORMAL
[2018-12-12] VITALS: BP 122/66
[2018-12-12 04:00] VITALS: BP 134/66
[2018-12-12] MEDS: HYDRALAZINE HCL 50MG TABLET PO SCH ×3 (06:25→21:33)
[2018-12-12 08:00] VITALS: BP 146/76
[2018-12-12] MEDS: SEVELAMER CARBONATE 800 MG TABLET PO SCH ×3 (08:52→17:11)
[2018-12-12] MEDS: ASPIRIN 325MG EC TABLET PO SCH (08:52)
[2018-12-12] MEDS: METOPROLOL TARTRATE 25MG TABLET PO SCH ×2 (08:53→21:00)
[2018-12-12] MEDS: FOLIC ACID/VITAMIN B COMP W-C TABLET PO SCH (08:53)
[2018-12-12] MEDS: NIFEDIPINE XL 90MG TAB PO SCH (08:53)
[2018-12-12] MEDS: MINOXIDIL 2.5MG TABLET PO SCH ×2 (08:54→21:00)
[2018-12-12] MEDS: FAMOTIDINE 20MG TABLET PO SCH (08:54)
[2018-12-12] MEDS: ENOXAPARIN 30MG/0.3ML SYR SUBCUT SCH (08:54)
[2018-12-12 10:41] LABS: BASOPHILS % 1.9 % (0.0-2.0); EOSINOPHILS % 9.2 % (0.0-5.0); HEMATOCRIT. 25.7 % (42.0-52.0); HEMOGLOBIN. 8.9 g/dL (14.0-18.0); LYMPHOCYTES % 19.2 % (20.0-50.0); MEAN CORPUSCULAR HEMOGLOBIN 29.1 pg (28.0-32.0); MEAN CORPUSCULAR VOLUME 84.2 fL (80.0-94.0); MEAN PLATELET VOLUME 9.5 fl (7.4-10.4); MONOCYTES % 12.8 % (2.0-8.0); NEUTROPHILS % 56.9 % (40.0-76.0); PLATELET 177 x1000/uL (130-400); RED BLOOD CELL COUNT 3.05 mill/uL (4.7-6.1); RED CELL DISTRIBUTION WIDTH 14.7 % (11.6-14.6)
[2018-12-12 12:00] VITALS: BP 125/70
[2018-12-12 16:00] VITALS: BP 118/69
[2018-12-12 20:00] VITALS: BP 133/75
[2018-12-13] VITALS: BP 118/66
[2018-12-13 04:00] VITALS: BP 130/69
[2018-12-13] MEDS: HYDRALAZINE HCL 50MG TABLET PO SCH ×3 (05:24→22:00)
[2018-12-13 08:00] VITALS: BP 119/59
[2018-12-13] MEDS: SEVELAMER CARBONATE 800 MG TABLET PO SCH ×3 (09:03→18:19)
[2018-12-13] MEDS: METOPROLOL TARTRATE 25MG TABLET PO SCH ×2 (09:03→21:00)
[2018-12-13] MEDS: MINOXIDIL 2.5MG TABLET PO SCH ×2 (09:04→21:00)
[2018-12-13] MEDS: FAMOTIDINE 20MG TABLET PO SCH (09:04)
[2018-12-13] MEDS: ASPIRIN 325MG EC TABLET PO SCH (09:04)
[2018-12-13] MEDS: NIFEDIPINE XL 90MG TAB PO SCH (09:04)
[2018-12-13] MEDS: ENOXAPARIN 30MG/0.3ML SYR SUBCUT SCH (09:04)
[2018-12-13] MEDS: FOLIC ACID/VITAMIN B COMP W-C TABLET PO SCH (09:04)
[2018-12-13 12:00] VITALS: BP 102/56
[2018-12-13 16:00] VITALS: BP 132/74
[2018-12-13 20:00] VITALS: BP 101/74
[2018-12-14] VITALS: BP 119/69
[2018-12-14 04:00] VITALS: BP 122/77
[2018-12-14] MEDS: HYDRALAZINE HCL 50MG TABLET PO SCH ×3 (05:29→22:23)
[2018-12-14 06:38] LABS: BASOPHILS % 1.2 % (0.0-2.0); EOSINOPHILS % 8.3 % (0.0-5.0); HEMATOCRIT. 24.6 % (42.0-52.0); HEMOGLOBIN. 8.5 g/dL (14.0-18.0); LYMPHOCYTES % 18.9 % (20.0-50.0); MEAN CORPUSCULAR HEMOGLOBIN 28.7 pg (28.0-32.0); MEAN CORPUSCULAR VOLUME 82.8 fL (80.0-94.0); MEAN PLATELET VOLUME 9.7 fl (7.4-10.4); MONOCYTES % 12.2 % (2.0-8.0); NEUTROPHILS % 59.4 % (40.0-76.0); PLATELET 176 x1000/uL (130-400); RED BLOOD CELL COUNT 2.97 mill/uL (4.7-6.1); RED CELL DISTRIBUTION WIDTH 14.7 % (11.6-14.6)
[2018-12-14 08:00] VITALS: BP 143/77
[2018-12-14] MEDS: SEVELAMER CARBONATE 800 MG TABLET PO SCH ×3 (08:07→17:47)
[2018-12-14] MEDS: FOLIC ACID/VITAMIN B COMP W-C TABLET PO SCH (08:07)
[2018-12-14] MEDS: ASPIRIN 325MG EC TABLET PO SCH (08:07)
[2018-12-14] MEDS: FAMOTIDINE 20MG TABLET PO SCH (08:07)
[2018-12-14] MEDS: ENOXAPARIN 30MG/0.3ML SYR SUBCUT SCH (08:08)
[2018-12-14] MEDS: NIFEDIPINE XL 90MG TAB PO SCH (09:00)
[2018-12-14] MEDS: METOPROLOL TARTRATE 25MG TABLET PO SCH ×2 (09:00→20:58)
[2018-12-14] MEDS: MINOXIDIL 2.5MG TABLET PO SCH ×2 (09:00→20:57)
[2018-12-14 12:00] VITALS: BP 124/72
[2018-12-14 16:00] VITALS: BP 141/82
[2018-12-14 20:00] VITALS: BP 140/85
[2018-12-15] VITALS: BP 129/71
[2018-12-15 04:00] VITALS: BP 151/83
[2018-12-15] MEDS: HYDRALAZINE HCL 50MG TABLET PO SCH ×3 (06:48→22:29)
[2018-12-15 08:00] VITALS: BP 142/82
[2018-12-15] MEDS: SEVELAMER CARBONATE 800 MG TABLET PO SCH ×3 (08:36→17:24)
[2018-12-15] MEDS: ENOXAPARIN 30MG/0.3ML SYR SUBCUT SCH (08:36)
[2018-12-15] MEDS: FOLIC ACID/VITAMIN B COMP W-C TABLET PO SCH (08:37)
[2018-12-15] MEDS: NIFEDIPINE XL 90MG TAB PO SCH (08:37)
[2018-12-15] MEDS: MINOXIDIL 2.5MG TABLET PO SCH ×2 (08:37→22:28)
[2018-12-15] MEDS: METOPROLOL TARTRATE 25MG TABLET PO SCH ×2 (08:37→22:28)
[2018-12-15] MEDS: ASPIRIN 325MG EC TABLET PO SCH (08:37)
[2018-12-15] MEDS: FAMOTIDINE 20MG TABLET PO SCH (08:37)
[2018-12-15 11:54] VITALS: BP 119/65
[2018-12-15 16:00] VITALS: BP 124/66
[2018-12-16] MEDS: HYDRALAZINE HCL 50MG TABLET PO SCH ×2 (06:43→13:51)
[2018-12-16 08:00] VITALS: BP 141/78
[2018-12-16] MEDS: SEVELAMER CARBONATE 800 MG TABLET PO SCH ×2 (08:20→12:06)
[2018-12-16] MEDS: ENOXAPARIN 30MG/0.3ML SYR SUBCUT SCH (08:20)
[2018-12-16] MEDS: METOPROLOL TARTRATE 25MG TABLET PO SCH (08:20)
[2018-12-16] MEDS: MINOXIDIL 2.5MG TABLET PO SCH ×2 (08:21→21:00)
[2018-12-16] MEDS: FAMOTIDINE 20MG TABLET PO SCH (08:21)
[2018-12-16] MEDS: FOLIC ACID/VITAMIN B COMP W-C TABLET PO SCH (08:21)
[2018-12-16] MEDS: ASPIRIN 325MG EC TABLET PO SCH (08:21)
[2018-12-16] MEDS: NIFEDIPINE XL 90MG TAB PO SCH (08:21)
[2018-12-16 12:00] VITALS: BP 114/63
[2018-12-16] MEDS ORDERED: ACETAMINOPHEN 325MG TABLET PO PRN (12:00)
[2018-12-16 16:00] VITALS: BP 113/65
[2018-12-16 20:00] VITALS: BP 123/71
[2018-12-17] VITALS: BP 116/62
[2018-12-17 04:00] VITALS: BP 145/81
[2018-12-17 08:00] VITALS: BP 132/83
[2018-12-17 08:03] LABS: BASOPHILS % 1.2 % (0.0-2.0); EOSINOPHILS % 6.7 % (0.0-5.0); HEMATOCRIT. 24.1 % (42.0-52.0); HEMOGLOBIN. 8.5 g/dL (14.0-18.0); LYMPHOCYTES % 13.3 % (20.0-50.0); MEAN CORPUSCULAR HEMOGLOBIN 29.2 pg (28.0-32.0); MEAN CORPUSCULAR VOLUME 83.1 fL (80.0-94.0); MEAN PLATELET VOLUME 9.5 fl (7.4-10.4); MONOCYTES % 13.2 % (2.0-8.0); NEUTROPHILS % 65.6 % (40.0-76.0); PLATELET 173 x1000/uL (130-400); RED CELL DISTRIBUTION WIDTH 14.3 % (11.6-14.6)
[2018-12-17] MEDS: MINOXIDIL 2.5MG TABLET PO SCH ×2 (08:31→22:05)
[2018-12-17] MEDS: ENOXAPARIN 30MG/0.3ML SYR SUBCUT SCH (08:31)
[2018-12-17] MEDS ORDERED: NITROGLYCERIN 0.4MG TABLET SL SL PRN (09:15)
[2018-12-17] MEDS ORDERED: ONDANSETRON 4MG ODT PO PRN (09:15)
[2018-12-17] MEDS: METOPROLOL TARTRATE 25MG TABLET PO SCH ×2 (09:48→22:05)
[2018-12-17] MEDS: ASPIRIN 325MG EC TABLET PO SCH (09:49)
[2018-12-17] MEDS: NIFEDIPINE XL 90MG TAB PO SCH (09:49)
[2018-12-17] MEDS ORDERED: SODIUM POLYSTYRENE SULFONATE 15 G/60 ML BOT PO NR (10:30)
[2018-12-17 12:00] VITALS: BP 104/71
[2018-12-17 16:00] VITALS: BP 117/75
[2018-12-17 20:00] VITALS: BP 129/72
[2018-12-17] MEDS: FAMOTIDINE 20MG TABLET PO SCH (22:05)
[2018-12-18] VITALS: BP 106/63
[2018-12-18 04:00] VITALS: BP 148/77
[2018-12-18 08:00] VITALS: BP 141/72
[2018-12-18] MEDS: ASPIRIN 325MG EC TABLET PO SCH (08:06)
[2018-12-18] MEDS: METOPROLOL TARTRATE 25MG TABLET PO SCH ×2 (08:06→21:00)
[2018-12-18] MEDS: MINOXIDIL 2.5MG TABLET PO SCH ×2 (08:06→21:00)
[2018-12-18] MEDS: NIFEDIPINE XL 90MG TAB PO SCH (08:06)
[2018-12-18] MEDS: ENOXAPARIN 30MG/0.3ML SYR SUBCUT SCH (08:07)
[2018-12-18 12:00] VITALS: BP 116/63
[2018-12-18] MEDS: HYDRALAZINE HCL 50MG TABLET PO SCH ×2 (14:06→21:01)
[2018-12-18 16:04] VITALS: BP 109/49
[2018-12-18 20:00] VITALS: BP 127/70
[2018-12-18] MEDS: FAMOTIDINE 20MG TABLET PO SCH (21:00)
[2018-12-19] VITALS: BP 123/65
[2018-12-19 04:00] VITALS: BP 120/76
[2018-12-19] MEDS: HYDRALAZINE HCL 50MG TABLET PO SCH ×3 (06:56→21:18)
[2018-12-19 08:00] VITALS: BP 136/67
[2018-12-19] MEDS: ASPIRIN 325MG EC TABLET PO SCH (08:42)
[2018-12-19] MEDS: ENOXAPARIN 30MG/0.3ML SYR SUBCUT SCH (08:42)
[2018-12-19] MEDS: METOPROLOL TARTRATE 25MG TABLET PO SCH ×2 (08:43→20:14)
[2018-12-19] MEDS: MINOXIDIL 2.5MG TABLET PO SCH ×2 (08:43→20:15)
[2018-12-19] MEDS: NIFEDIPINE XL 90MG TAB PO SCH (08:43)
[2018-12-19 12:00] VITALS: BP 128/71
[2018-12-19 16:00] VITALS: BP 116/74
[2018-12-19 20:00] VITALS: BP 128/72
[2018-12-19] MEDS: FAMOTIDINE 20MG TABLET PO SCH (20:14)
[2018-12-20] VITALS: BP 113/62
[2018-12-20 04:00] VITALS: BP 151/79
[2018-12-20] MEDS: HYDRALAZINE HCL 50MG TABLET PO SCH ×3 (05:34→21:54)
[2018-12-20 08:00] VITALS: BP 146/86
[2018-12-20] MEDS: METOPROLOL TARTRATE 25MG TABLET PO SCH ×2 (08:43→20:20)
[2018-12-20] MEDS: ASPIRIN 325MG EC TABLET PO SCH (08:43)
[2018-12-20] MEDS: ENOXAPARIN 30MG/0.3ML SYR SUBCUT SCH (08:43)
[2018-12-20] MEDS: NIFEDIPINE XL 90MG TAB PO SCH (08:43)
[2018-12-20 12:00] VITALS: BP 126/62
[2018-12-20 16:00] VITALS: BP 125/69
[2018-12-20 20:00] VITALS: BP 131/80
[2018-12-20] MEDS: FAMOTIDINE 20MG TABLET PO SCH (20:21)
[2018-12-21] VITALS: BP 124/72
[2018-12-21 04:00] VITALS: BP 132/66
[2018-12-21] MEDS: HYDRALAZINE HCL 50MG TABLET PO SCH ×2 (06:01→13:59)
[2018-12-21 07:13] LABS: HEMATOCRIT. 22.2 % (42.0-52.0); HEMOGLOBIN. 7.7 g/dL (14.0-18.0); MEAN CORPUSCULAR HEMOGLOBIN 28.7 pg (28.0-32.0); MEAN CORPUSCULAR VOLUME 83.2 fL (80.0-94.0); MEAN PLATELET VOLUME 9.3 fl (7.4-10.4); PLATELET 146 x1000/uL (130-400); RED BLOOD CELL COUNT 2.67 mill/uL (4.7-6.1); RED CELL DISTRIBUTION WIDTH 14.2 % (11.6-14.6)
[2018-12-21 08:00] VITALS: BP 139/78
[2018-12-21] MEDS: ENOXAPARIN 30MG/0.3ML SYR SUBCUT SCH (09:00)
[2018-12-21] MEDS: ASPIRIN 325MG EC TABLET PO SCH (09:00)
[2018-12-21] MEDS: NIFEDIPINE XL 90MG TAB PO SCH (09:00)
[2018-12-21] MEDS: METOPROLOL TARTRATE 25MG TABLET PO SCH (09:00)
[2018-12-21 11:05] LABS: PLATELET ESTIMATE NORMAL
[2018-12-21 12:00] VITALS: BP 116/70
[2018-12-21 16:00] VITALS: BP 141/78
[2018-12-21 17:13] VITALS: BP 116/70
[2018-12-21] MEDS ORDERED: EPOETIN ALFA 10000UNITS/ML VIAL SUBCUT SCH (21:00)
== END 2018-12-21 19:00 | DRG 194 ==
LOC: ER 04:58 → 6WST 07:02 → EDBEDREQ 07:05 → EDBEDREQTM 07:05 → ENRESERV 07:25 → MICUNO 11-20 02:49 → 8WST 11-21 22:36 → 6WST 12-02 15:42 → 6EST 12-11 09:50
PROVIDERS: ADMIT Internal Medicine; ATTEND Internal Medicine
PROC: 5A1D70Z Performance of Urinary Filtration, Intermittent, Less than 6 Hours Per Day (ICD-10-PCS; principal; 2018-11-18)
PROC: 5A1D70Z Performance of Urinary Filtration, Intermittent, Less than 6 Hours Per Day (ICD-10-PCS; 2018-11-20)
PROC: 5A1D70Z Performance of Urinary Filtration, Intermittent, Less than 6 Hours Per Day (ICD-10-PCS; 2018-11-22)
PROC: 5A1D70Z Performance of Urinary Filtration, Intermittent, Less than 6 Hours Per Day (ICD-10-PCS; 2018-11-24)
PROC: 5A1D70Z Performance of Urinary Filtration, Intermittent, Less than 6 Hours Per Day (ICD-10-PCS; 2018-11-26)
PROC: 5A1D70Z Performance of Urinary Filtration, Intermittent, Less than 6 Hours Per Day (ICD-10-PCS; 2018-11-28)
PROC: 5A1D70Z Performance of Urinary Filtration, Intermittent, Less than 6 Hours Per Day (ICD-10-PCS; 2018-11-30)
PROC: 5A1D70Z Performance of Urinary Filtration, Intermittent, Less than 6 Hours Per Day (ICD-10-PCS; 2018-12-02)
PROC: 5A1D70Z Performance of Urinary Filtration, Intermittent, Less than 6 Hours Per Day (ICD-10-PCS; 2018-12-05)
PROC: 5A1D70Z Performance of Urinary Filtration, Intermittent, Less than 6 Hours Per Day (ICD-10-PCS; 2018-12-07)
PROC: 5A1D70Z Performance of Urinary Filtration, Intermittent, Less than 6 Hours Per Day (ICD-10-PCS; 2018-12-09)
PROC: 5A1D70Z Performance of Urinary Filtration, Intermittent, Less than 6 Hours Per Day (ICD-10-PCS; 2018-12-10)
PROC: 5A1D70Z Performance of Urinary Filtration, Intermittent, Less than 6 Hours Per Day (ICD-10-PCS; 2018-12-12)
PROC: 5A1D70Z Performance of Urinary Filtration, Intermittent, Less than 6 Hours Per Day (ICD-10-PCS; 2018-12-14)
PROC: 5A1D70Z Performance of Urinary Filtration, Intermittent, Less than 6 Hours Per Day (ICD-10-PCS; 2018-12-16)
PROC: 5A1D70Z Performance of Urinary Filtration, Intermittent, Less than 6 Hours Per Day (ICD-10-PCS; 2018-12-19)
PROC: 5A1D70Z Performance of Urinary Filtration, Intermittent, Less than 6 Hours Per Day (ICD-10-PCS; 2018-12-21)
DX: I13.2 Hypertensive heart and chronic kidney disease with heart failure and with stage 5 chronic kidney disease, or end stage renal disease (principal); D70.9 Neutropenia, unspecified; N18.6 End stage renal disease; E44.1 Mild protein-calorie malnutrition; E87.5 Hyperkalemia; D63.8 Anemia in other chronic diseases classified elsewhere; I50.33 Acute on chronic diastolic (congestive) heart failure; Z91.14 Patient's other noncompliance with medication regimen; Z91.19 Patient's noncompliance with other medical treatment and regimen; Z99.2 Dependence on renal dialysis; Z59.0 Homelessness
CPT/HCPCS: 36415; 36600; 71045; 80048; 80051; 80061; 80305; 82375; 82550; 82553; 82805; 82962; 83036; 83880; 84100; 84132; 84484; 85027; 86705; 86706; 86709; 86803; 87340; 92610; 93005; 93970; 94640; 96374; 97162; 99285; J0885; J1200; J1650; J1940; J2060; J2405; J3490; J7050; J7070; J7620

== ENCOUNTER 2018-12-24 16:20 | Inpatient (IN) | payer MEDICAID, OTHER ==
[~2018-12-24] VITALS: Ht 182.9 cm; Wt 76.2 kg
[~2018-12-24 16:20] MED LIST changes: +AMLO2.5T45 MT; +ATOR20TA65 MT; +CHOL100044 MT; -CLON0.2T PO; -HYDR-3927 PO; +LABE300T3 MT; -LEVO250T2 PO; +MULT1TAB63 MT; -NIFE90TA2 PO; -P20 PO; +TAMS-11 MT; +WARF7.5T48 MT
[2018-12-24 17:16] LABS: CLARITY URINE CLEAR (CLEAR); COLOR URINE YELLOW (YELLOW); KETONES URINE NEGATIVE (NEGATIVE); LEUKOCYTE ESTERASE URINE NEGATIVE (NEGATIVE); NITRITE URINE NEGATIVE (NEGATIVE); OCCULT BLOOD URINE NEGATIVE (NEGATIVE); PH URINE 7.5 (4.5-8.0); PROTEIN URINE 2+ (NEGATIVE); SPECIFIC GRAVITY URINE 1.012 (1.005-1.030); UROBILINOGEN URINE 0.2 E.U./dL (0.2-1.0)
[2018-12-24 17:23] LABS: CHLORIDE 104 mEq/L (98-107)
[2018-12-24 17:24] LABS: BASOPHILS % 0.9 % (0.0-2.0); EOSINOPHILS % 7.3 % (0.0-5.0); HEMATOCRIT. 24.2 % (42.0-52.0); HEMOGLOBIN. 8.3 g/dL (14.0-18.0); LYMPHOCYTES % 14.3 % (20.0-50.0); MEAN CORPUSCULAR VOLUME 84.3 fL (80.0-94.0); MEAN PLATELET VOLUME 9.8 fl (7.4-10.4); NEUTROPHILS % 68.5 % (40.0-76.0); PLATELET 156 x1000/uL (130-400); RED BLOOD CELL COUNT 2.87 mill/uL (4.7-6.1); RED CELL DISTRIBUTION WIDTH 14.7 % (11.6-14.6)
[2018-12-24 17:46] LABS: *AMPHETAMINES SCREEN URINE NEGATIVE (NEGATIVE); *BARBITURATES SCREEN URINE NEGATIVE (NEGATIVE); *BENZODIAZEPINES SCREEN URINE NEGATIVE (NEGATIVE); *COCAINE SCREEN URINE NEGATIVE (NEGATIVE); METHADONE URINE SCREEN NEGATIVE (NEGATIVE); OPIATES URINE SCREEN NEGATIVE (NEGATIVE)
[2018-12-24 17:47] LABS: CANNABINOID URINE SCREEN NEGATIVE (NEGATIVE); PHENCYCLIDINE URINE SCREEN NEGATIVE (NEGATIVE)
[2018-12-24] MEDS ORDERED: ACETAMINOPHEN 325MG TABLET PO PRN (22:30)
[2018-12-24] MEDS ORDERED: ONDANSETRON HCL 4MG/2ML INJ IV PRN (22:30)
[2018-12-24] MEDS ORDERED: DOCUSATE SODIUM 100MG CAPSULE PO PRN (22:30)
[2018-12-24] MEDS ORDERED: IPRATROPIUM/ALBUTEROL 0.5-3(2.5)MG/3ML NEB NEB PRN (22:30)
[2018-12-24] MEDS ORDERED: HYDROCODONE/ACETAMINOPHEN 5/325MG TABLET PO PRN (22:30)
[2018-12-25] MEDS: CLONIDINE 0.1MG TABLET PO PRN ×2 (00:58→07:28)
[2018-12-25 05:47] LABS: BASOPHILS % 0.7 % (0.0-2.0); EOSINOPHILS % 5.4 % (0.0-5.0); HEMATOCRIT. 21.2 % (42.0-52.0); HEMOGLOBIN. 7.4 g/dL (14.0-18.0); LYMPHOCYTES % 9.8 % (20.0-50.0); MEAN CORPUSCULAR VOLUME 83.7 fL (80.0-94.0); MEAN PLATELET VOLUME 9.5 fl (7.4-10.4); NEUTROPHILS % 73.1 % (40.0-76.0); PLATELET 136 x1000/uL (130-400); RED BLOOD CELL COUNT 2.53 mill/uL (4.7-6.1); RED CELL DISTRIBUTION WIDTH 14.5 % (11.6-14.6)
[2018-12-25 10:00] VITALS: BP 173/95
[2018-12-25 12:01] VITALS: BP 162/91
[2018-12-25 15:45] VITALS: BP 159/92
[2018-12-25] MEDS: AMLODIPINE 5MG TABLET PO SCH (15:52)
[2018-12-25] MEDS: CALCIUM ACETATE 667MG CAPSULE PO SCH (18:01)
[2018-12-25] MEDS: ATORVASTATIN CALCIUM 20MG TABLET PO SCH (18:01)
[2018-12-25] MEDS: TAMSULOSIN HCL 0.4MG SR CAPSULE PO SCH (18:01)
[2018-12-25] MEDS: CHOLECALCIFEROL (D3) 1000 UNIT TABLET PO SCH (18:01)
[2018-12-25 20:00] VITALS: BP 149/86
[2018-12-25 22:26] LABS: PROTHROMBIN TIME 10.5 sec (9.6-11.0)
[2018-12-25] MEDS: HEPARIN 5000 UNITS/ML VIAL SUBCUT SCH (22:52)
[2018-12-26] VITALS: BP 158/90
[2018-12-26 04:00] VITALS: BP 154/76
[2018-12-26 08:00] VITALS: BP 151/75
[2018-12-26 08:19] LABS: BASOPHILS % 0.8 % (0.0-2.0); EOSINOPHILS % 5.2 % (0.0-5.0); HEMATOCRIT. 21.9 % (42.0-52.0); HEMOGLOBIN. 7.6 g/dL (14.0-18.0); LYMPHOCYTES % 13.4 % (20.0-50.0); MEAN CORPUSCULAR VOLUME 83.8 fL (80.0-94.0); MEAN PLATELET VOLUME 9.9 fl (7.4-10.4); MONOCYTES % 12.8 % (2.0-8.0); NEUTROPHILS % 67.8 % (40.0-76.0); PLATELET 145 x1000/uL (130-400); RED BLOOD CELL COUNT 2.62 mill/uL (4.7-6.1); RED CELL DISTRIBUTION WIDTH 14.3 % (11.6-14.6)
[2018-12-26 08:20] LABS: PHOSPHORUS 5.7 mg/dL (2.5-4.9)
[2018-12-26] MEDS: ATORVASTATIN CALCIUM 20MG TABLET PO SCH (08:49)
[2018-12-26] MEDS: HEPARIN 5000 UNITS/ML VIAL SUBCUT SCH (08:49)
[2018-12-26] MEDS: AMLODIPINE 5MG TABLET PO SCH (08:50)
[2018-12-26] MEDS: CALCIUM ACETATE 667MG CAPSULE PO SCH ×2 (08:50→12:41)
[2018-12-26] MEDS: CHOLECALCIFEROL (D3) 1000 UNIT TABLET PO SCH (08:50)
[2018-12-26] MEDS: TAMSULOSIN HCL 0.4MG SR CAPSULE PO SCH (09:45)
[2018-12-26 11:59] VITALS: BP 164/75
[2018-12-26] MEDS: CLONIDINE 0.1MG TABLET PO PRN (12:42)
[2018-12-26 16:13] VITALS: BP 138/69
[2018-12-26 20:00] VITALS: BP 174/84
[2018-12-26] MEDS ORDERED: EPOETIN ALFA 10000UNITS/ML VIAL SUBCUT SCH (21:00)
[2018-12-27] VITALS (7 sets, daily range): BP systolic 145–175; BP diastolic 65–93
[2018-12-27 06:19] LABS: HEMATOCRIT. 21.6 % (42.0-52.0); HEMOGLOBIN. 7.5 g/dL (14.0-18.0); MEAN CORPUSCULAR HEMOGLOBIN 28.8 pg (28.0-32.0); MEAN CORPUSCULAR VOLUME 83.1 fL (80.0-94.0); PLATELET 152 x1000/uL (130-400); RED CELL DISTRIBUTION WIDTH 14.3 % (11.6-14.6)
[2018-12-27] MEDS: TAMSULOSIN HCL 0.4MG SR CAPSULE PO SCH (08:53)
[2018-12-27] MEDS: CHOLECALCIFEROL (D3) 1000 UNIT TABLET PO SCH ×3 (08:53→17:14)
[2018-12-27] MEDS: CALCIUM ACETATE 667MG CAPSULE PO SCH ×4 (08:53→17:14)
[2018-12-27] MEDS: AMLODIPINE 5MG TABLET PO SCH ×2 (08:54→12:29)
[2018-12-27] MEDS: ATORVASTATIN CALCIUM 20MG TABLET PO SCH (08:57)
[2018-12-27] MEDS: CLONIDINE 0.1MG TABLET PO PRN (12:27)
[2018-12-27 15:59] LABS: PLATELET ESTIMATE NORMAL
== END 2018-12-27 17:08 | DRG 194 ==
LOC: ER 16:46 → ENRESERV 12-25 08:01 → 7WST 12-25 09:21
PROVIDERS: ADMIT Internal Medicine; ATTEND Internal Medicine
PROC: 5A1D70Z Performance of Urinary Filtration, Intermittent, Less than 6 Hours Per Day (ICD-10-PCS; principal; 2018-12-24)
PROC: 5A1D70Z Performance of Urinary Filtration, Intermittent, Less than 6 Hours Per Day (ICD-10-PCS; 2018-12-25)
PROC: 5A1D70Z Performance of Urinary Filtration, Intermittent, Less than 6 Hours Per Day (ICD-10-PCS; 2018-12-26)
DX: I13.2 Hypertensive heart and chronic kidney disease with heart failure and with stage 5 chronic kidney disease, or end stage renal disease (principal); G92 Toxic encephalopathy; E87.2 Acidosis; E87.5 Hyperkalemia; N18.6 End stage renal disease; I27.20 Pulmonary hypertension, unspecified; I50.33 Acute on chronic diastolic (congestive) heart failure; Z99.2 Dependence on renal dialysis; I35.0 Nonrheumatic aortic (valve) stenosis; D63.8 Anemia in other chronic diseases classified elsewhere; R74.0 Nonspecific elevation of levels of transaminase and lactic acid dehydrogenase [LDH]; E78.5 Hyperlipidemia, unspecified; N40.0 Benign prostatic hyperplasia without lower urinary tract symptoms; Z86.73 Personal history of transient ischemic attack (TIA), and cerebral infarction without residual deficits; Z79.01 Long term (current) use of anticoagulants; Z79.899 Other long term (current) drug therapy
CPT/HCPCS: 36415; 71045; 80048; 80305; 80320; 81003; 82728; 83540; 83550; 83735; 83880; 84100; 84484; 93005; 93306; 99285; C1893; J0885; J1644; G0480